=== PATIENT | female | born 1980 | race Asian ===

== ENCOUNTER 2017-01-31 02:55 | Inpatient (IN) | payer OTHER ==
[2017-01-31] MEDS: DEXTROSE 5%-LACTATED RINGERS 1,000 ML IV SCH (03:30)
[2017-01-31] MEDS ORDERED: TUBERCULIN PPD 5 TU/0.1ML SYRINGE (IN PATIENT USE ONLY) ID ONE (03:40)
[2017-01-31 04:05] LABS: BASOPHIL 0.3 % (0-2.0); EOSINOPHIL 0.8 % (0-4.5); MCH 29.8 pg (25.7-33.7); MCHC 33.1 g/dl (32.0-36.0); MEAN PLT VOLUME 7.5 fl (7.5-11.1); NEUTROPHILS 66.2 % (42.8-82.8); PLATELET COUNT 268 K/MM3 (134-434); RDW 15.8 % (11.6-15.6); WHITE BLOOD COUNT 11.8 K/mm3 (4.0-10.0)
[2017-01-31 04:18] LABS: INR 0.95 (0.82-1.09); PROTHROMBIN TIME (PATIENT) 10.4 SEC (9.98-11.88)
[2017-01-31 04:21] LABS: ACTIVATED PTT 30.1 SECONDS (26.9-34.4)
[2017-01-31 04:23] LABS: CALCIUM 8.7 mg/dL (8.5-10.1); CREATININE 0.5 mg/dL (0.55-1.02)
[2017-01-31 04:25] VITALS: BMI 30.9
[2017-01-31 04:32] LABS: COCKROFT - GAULT 211.1485
[2017-01-31] MEDS ORDERED: DINOPROSTONE 10 MG VAGINAL SUPPOSITORY VG ONE (04:45)
[2017-01-31 04:48] LABS: HIV 1 & 2 AB NEGATIVE; HIV 1 AGp24 NEGATIVE
[2017-01-31] MEDS ORDERED: BUTORPHANOL TARTRATE 1 MG/ML VIAL IVPUSH PRN (07:20)
[2017-01-31] MEDS ORDERED: BENZOCAINE 20% 57 GM BOTTLE TP PRN (09:25)
[2017-01-31] MEDS ORDERED: WITCH HAZEL 50% (TUCKS) 40 PAD/JAR PAD TP PRN (09:25)
[2017-01-31] MEDS ORDERED: METHYLERGONOVINE MALEATE 0.2 MG/1 ML AMP IM PRN (09:25)
[2017-01-31] MEDS ORDERED: BISACODYL 10 MG SUPP.RECT RC PRN (09:25)
[2017-01-31] MEDS ORDERED: BENZOCAINE 28 GM HEMORRHOIDAL OINTMENT TP PRN (09:25)
[2017-01-31] MEDS ORDERED: D5W-LR W/ 20 UNITS OXYTOCIN 1,000 ML IV SCH (09:30)
--- NOTE | 2017-01-31 09:36 | HP ---
Past Medical History - Admission Chief Complaint: Labor pain History of Present Illness: Normal spontaneous vaginal delivery of a live girl over second degree laceration. Nose / Oropharynx suctioned @ perineum. Nuchal cord x 1 clamped and cut. Placenta expelled spontaneously intact. Laceration repaired with 2.0 Chromic. History Source: Patient Limitations to Obtaining History: No Limitations - Past Medical History ...: 2 ...Para: 1 ...Term: 1 ...LMP: 04/24/16 ... Weeks Gestation by Dates: 40.2 ...EDC by Dates: 01/29/17 ...EDC by Sono: 11/01/16 - Past Surgical History Past Surgical History: Yes: None Hx Myomectomy: No Hx Transabdominal Cerclage: No - Smoking History Smoking history: Never smoked - Alcohol/Substance Use Hx Alcohol Use: No History of Substance Use: reports: None - Social History Usual Living Arrangement: Yes: With Spouse History of Recent Travel: No Home Medications - Allergies Allergies/Adverse Reactions: Allergies Allergy/AdvReac Type Severity Reaction Status Date / Time No Known Allergies Allergy Verified 01/31/17 03:47 - Home Medications Home Medications: Ambulatory Orders Vit Calc,Iron,Folic [ Vitamins] 1 each PO DAILY 01/31/17 Family Disease History - Family Disease History Family History: Unremarkable Review of Systems - Review of Systems Constitutional: reports: No Symptoms Eyes: reports: No Symptoms HENT: reports: No Symptoms Neck: reports: No Symptoms Cardiovascular: reports: No Symptoms Respiratory: reports: No Symptoms Gastrointestinal: reports: No Symptoms Genitourinary: reports: No Symptoms Breasts: reports: No Symptoms Reported Musculoskeletal: reports: No Symptoms Integumentary: reports: No Symptoms Neurological: reports: No Symptoms Endocrine: reports: No Symptoms Hematology/Lymphatic: reports: No Symptoms Psychiatric: reports: No Symptoms Pain Intensity: 10 Physical Exam - Maternity Vital Signs: Vital Signs Temperature 98.0 F 01/31/17 07:00 Pulse Rate 77 01/31/17 07:00 Respiratory Rate 20 01/31/17 07:00 Blood Pressure 111/65 01/31/17 07:00 O2 Sat by Pulse Oximetry (%) Constitutional: Yes: Well Nourished Eyes: Yes: Conjunctiva Clear HENT: Yes: Atraumatic Neck: Yes: Supple, Trachea Midline Cardiovascular: Yes: Regular Rate and Rhythm Lungs: Clear to auscultation - Abdominal Exam/OB Number of Fetuses: Single Presentation: Vertex Contractions: Yes Regularity: Regular Intensity: Mod/Strong Category: I - Vaginal Exam/OB Vaginal Bleediing: No Speculum Exam: No Dilatation (cm): Closed Amniotic Membrane Status: Intact - Labs Lab Results: CBC, BMP 01/31/17 03:46 01/31/17 03:46 Problem List - Problems (1) Pain during labor Code(s): O99.89 - OTH DISEASES AND CONDITIONS COMPL PREG/CHLDBRTH R52 - PAIN, UNSPECIFIED Assessment/Plan Labor pain Admit to L&D Place Cervidil Anticipate
--- NOTE | 2017-01-31 09:41 | PN ---
Delivery - Delivery Vaginal Delivery: Spontaneous Type of Anesthesia: Local Episiotomy/Laceration: 2nd degree EBL (cc): 250 Delivery, Single - Feeding Plan Initial Plan: Exclusive throughout hospitalization Remarks - Remarks Remarks: of a live over second degree laceration. Nose and mouth suction. Nuchal cord x 1 cut and clamped. Placenta expelled spontaneously intact. Laceration repaired with 2.0 Chromic.
--- NOTE | 2017-01-31 09:43 | DS ---
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 Vital Signs: Vital Signs Temperature 98.0 F 01/31/17 07:00 Pulse Rate 77 01/31/17 07:00 Respiratory Rate 20 01/31/17 07:00 Blood Pressure 111/65 01/31/17 07:00 O2 Sat by Pulse Oximetry (%) Constitutional: Yes: Well Nourished Eyes: Yes: Conjunctiva Clear HENT: Yes: Atraumatic Neck: Yes: Supple, Trachea Midline Cardiovascular: Yes: Regular Rate and Rhythm Respiratory: Yes: Regular, CTA Bilaterally Gastrointestinal: Yes: Normal Bowel Sounds Uterus: Yes: Firm ....Post : Yes: Uterus firm, Moderate lochia rubra Breast(s): Yes: WNL Musculoskeletal: Yes: WNL Extremities: Yes: WNL Neurological: Yes: Alert, Oriented Psychiatric: Yes: Alert, Oriented Labs: CBC, BMP 01/31/17 03:46 01/31/17 03:46 Delivery - Delivery Vaginal Delivery: Spontaneous Type of Anesthesia: Local Episiotomy/Laceration: 2nd degree EBL (cc): 250 Delivery, Single - [place] Feeding Plan Initial Plan: Exclusive throughout hospitalization Discharge Summary Reason For Visit: ADMIT Current Active Problems Pain during labor (Acute) Status post normal vaginal delivery (Acute) Procedures: Principal: Normal spontaneous vaginal delivery Hospital Course: Routine care Condition: Good - Instructions Diet, Activity, Other Instructions: Regular diet No sexual intercourse, no douching x 6 weeks. Referrals: Key Lauren MD [Staff Physician] - Disposition: HOME - Home Medications Comprehensive Discharge Medication List: Ambulatory Orders Vit Calc,Iron,Folic [ Vitamins] 1 each PO DAILY 01/31/17
[2017-01-31] MEDS: ACETAMINOPHEN 325 MG TABLET (FP) PO PRN (11:50)
[2017-01-31] MEDS: PRENATAL VITAMINS W/ FOLIC ACID TABLET (FP) PO SCH (11:50)
[2017-01-31] MEDS: FERROUS SO4 325 MG TABLET (FP) PO SCH ×2 (11:50→18:27)
[2017-01-31] MEDS: IBUPROFEN 600 MG TABLET (FP) PO PRN (11:53)
[2017-02-01] MEDS: ACETAMINOPHEN 325 MG TABLET (FP) PO PRN (05:42)
[2017-02-01] MEDS: IBUPROFEN 600 MG TABLET (FP) PO PRN (05:43)
--- NOTE | 2017-02-01 07:50 | PN ---
Post Progress Note - Subjective Subjective: 36 yo Para 2, status post vaginal delivery, seen and evaluated. Doing well. Post Day: 1 Type of Delivery: Vital Signs: Vital Signs Temperature 98 F 02/01/17 07:42 Pulse Rate 78 02/01/17 07:42 Respiratory Rate 18 02/01/17 07:42 Blood Pressure 115/72 02/01/17 07:42 O2 Sat by Pulse Oximetry (%) 99 01/31/17 09:30 Breast Exam: Yes: Soft Uterus: Yes: Fundus Firm Abdomen/GI: Yes: Abdomen soft, Tolerating PO Lochia: Yes: Rubra Lochia, amount: Moderate Extremities: Yes: Calves non-tender Perineum: Yes: Laceration (Healing wound) Activity: Ambulating - Labs Labs: CBC WBC 11.8 K/mm3 (4.0-10.0) H 01/31/17 03:46 RBC 4.00 M/mm3 (3.60-5.2) 01/31/17 03:46 Hgb 11.9 GM/dL (10.7-15.3) 01/31/17 03:46 Hct 36.0 % (32.4-45.2) 01/31/17 03:46 MCV 90.0 fl (80-96) 01/31/17 03:46 MCHC 33.1 g/dl (32.0-36.0) 01/31/17 03:46 RDW 15.8 % (11.6-15.6) H 01/31/17 03:46 Plt Count 268 K/MM3 (134-434) 01/31/17 03:46 MPV 7.5 fl (7.5-11.1) 01/31/17 03:46 Neutrophils % 66.2 % (42.8-82.8) 01/31/17 03:46 Lymphocytes % 23.1 % (8-40) D 01/31/17 03:46 Monocytes % 9.6 % (3.8-10.2) 01/31/17 03:46 Eosinophils % 0.8 % (0-4.5) D 01/31/17 03:46 Basophils % 0.3 % (0-2.0) 01/31/17 03:46 Problem List - Problems (1) Pain during labor Code(s): O99.89 - OTH DISEASES AND CONDITIONS COMPL PREG/CHLDBRTH R52 - PAIN, UNSPECIFIED Assessment/Plan Status post Stable Continue routine care.
[2017-02-01 08:20] LABS: BASOPHIL 0.2 % (0-2.0); EOSINOPHIL 0.4 % (0-4.5); MCH 30.4 pg (25.7-33.7); MCHC 33.1 g/dl (32.0-36.0); MEAN CELL VOLUME 91.7 fl (80-96); MEAN PLT VOLUME 7.5 fl (7.5-11.1); NEUTROPHILS 71.4 % (42.8-82.8); PLATELET COUNT 247 K/MM3 (134-434); RDW 15.9 % (11.6-15.6); WHITE BLOOD COUNT 13.8 K/mm3 (4.0-10.0)
[2017-02-01] MEDS: FERROUS SO4 325 MG TABLET (FP) PO SCH ×3 (08:29→16:43)
[2017-02-01] MEDS: PRENATAL VITAMINS W/ FOLIC ACID TABLET (FP) PO SCH (09:33)
[2017-02-01] MEDS ORDERED: INFLUENZA VACCINE 60 MCG/0.5 ML (P/F DISP.SYRIN 16-17) IM ONE (10:00)
[2017-02-01] MEDS ORDERED: INFLUENZA VACCINE 45 MCG/0.5 ML (MDV 16-17) IM ONE (10:00)
[2017-02-01] MEDS ORDERED: DIPHTH,PERTUSS(ACELL),TET 0.5 ML DISP.SYRIN IM ONE (10:00)
[2017-02-01] MEDS ORDERED: SENNOSIDES/DOCUSATE COMBO (SENNA PLUS) TABLET (UD) PO PRN (22:00)
[2017-02-02] MEDS: IBUPROFEN 600 MG TABLET (FP) PO PRN ×2 (00:35→11:40)
[2017-02-02] MEDS: ACETAMINOPHEN 325 MG TABLET (FP) PO PRN ×2 (00:36→11:39)
[2017-02-02] MEDS: PRENATAL VITAMINS W/ FOLIC ACID TABLET (FP) PO SCH (09:19)
[2017-02-02] MEDS: FERROUS SO4 325 MG TABLET (FP) PO SCH ×2 (09:19→11:39)
[2017-02-02] MEDS: DEXTROSE 5%-LACTATED RINGERS 1,000 ML IV SCH (09:24)
[2017-02-02 09:44] VITALS: BP 95/62; PULSE 71; TEMP 97.9
== END 2017-02-02 12:40 | disposition home or self-care (01) | DRG 775 ==
LOC: JLDR 02:55 → J3W 10:30
PROVIDERS: ADMIT Obstetrics & Gynecology; ATTEND Obstetrics & Gynecology
PROC: 10E0XZZ Delivery of Products of Conception, External Approach (ICD-10-PCS; principal; 2017-01-31)
PROC: 0KQM0ZZ Repair Perineum Muscle, Open Approach (ICD-10-PCS; 2017-01-31)
PROC: 0W8NXZZ Division of Female Perineum, External Approach (ICD-10-PCS; 2017-01-31)
PROC: 3E0P7GC Introduction of Other Therapeutic Substance into Female Reproductive, Via Natural or Artificial Opening (ICD-10-PCS; 2017-01-31)
DX: O70.1 Second degree perineal laceration during delivery (principal); Z37.0 Single live birth; Z3A.40 40 weeks gestation of pregnancy
CPT/HCPCS: 36415; 59409; 80048; 85025; 85610; 85730; 86593; 86850; 86900; 86901; 87389; 90686; 90715; G0008